=== PATIENT | female | born 1950 | race Caucasian/White ===

== ENCOUNTER 2016-07-23 10:48 | Outpatient (CLI) | payer MEDICARE, OTHER ==
[2016-07-23] VITALS (11 sets, daily range): BP systolic 109–154; BP diastolic 56–64; PULSE 53–62; RESP 18–24; TEMP 97.4–98.2; O2SAT 94–97; Ht 157.5 cm; Wt 75.7 kg
[~2016-07-23] VITALS: Ht 157.5 cm; Wt 75.7 kg
[~2016-07-23 10:48] MED LIST: ACET-1651 PO; AMLO5TAB2 PO; ASPI-558 PO; ATOR80TA76 PO; CALC-587 PO; CLOP75TA19 PO; FISH1CAP29 PO; FURO40TA70 PO; LORA-358 PO; METO25TA41 PO; METO25TA6 PO; NITR0.4T39 SL; NITR1PAT TD; NORMAL SALINE 1,000 ML IV SCH; PANT40TA27 PO; POTA20PA17 PO
--- NOTE | 2016-07-23 10:55 | NUR ---
ARRIVAL AMBULATORY TO ROOM 122. O2 RA. APPEARS TO BE IN NO DISTRESS AT THIS TIME. FAMILY AT BEDSIDE. NETO PIKE RN NOTIFIED OF PATIENT'S ARRIVAL.
[2016-07-23] MEDS ORDERED: MELA1TAB21 PO (11:11)
[2016-07-23] MEDS ORDERED: METO-277 PO (11:11)
[2016-07-23 12:11] LABS: BASOPHILS % (AUTO) 0.5 % (0-2); EOSINOPHILS # (AUTO) 0.3 T/MM3 (0-0.5); EOSINOPHILS % (AUTO) 4.3 % (0-4); HCT - HEMATOCRIT 41.7 % (36-46); IMMATURE GRANULOCYTE # (AUTO) 0.03 T/MM3 (0.00-0.03); IMMATURE GRANULOCYTE % (AUTO) 0.4 % (0.0-0.5); LYMPHOCYTES # (AUTO) 1.8 T/MM3 (1-4.8); MEAN CORPUSCULAR HGB 31.1 UUG (26-34); MEAN CORPUSCULAR HGB CONC(MCHC 33.6 GM/DL (31-37); MEAN CORPUSCULAR VOLUME 92.7 UM3 (80-100); MEAN PLATELET VOLUME 10.4 UM3 (9.4-12.4); MONOCYTES # (AUTO) 0.7 T/MM3 (0-0.8); MONOCYTES % (AUTO) 8.5 % (0-9.0); NEUTROPHILS #(AUTO)-ABSOLUTE 4.8 T/MM3 (1.8-7.7); NEUTROPHILS % (AUTO) 63.3 % (33-66); WBC - WHITE BLOOD COUNT 7.6 T/MM3 (4.5-11.0)
[2016-07-23 12:21] LABS: ANION GAP 11 MEQ/L (5-15); BUN/CREATININE RATIO 22 RATIO (6-26); CALCIUM 9.9 MG/DL (8.4-10.2); CHLORIDE 107 MEQ/L (98-107); CO2 - CARBON DIOXIDE 28 MEQ/L (22-30); GLOMERULAR FILTRATION RATE 55; GLUCOSE 111 MG/DL (65-110); POTASSIUM 3.4 MEQ/L (3.6-5); SODIUM 146 MEQ/L (134-144)
[2016-07-23] MEDS ORDERED: HEPARIN 1,000units in NS 500ml BAG IV ONE (13:52)
[2016-07-23] MEDS ORDERED: IOHEXOL 350mg/ml 200ml BOTTLE ONE ×2 (13:52→14:30)
[2016-07-23] MEDS ORDERED: LIDOCAINE 1% (10mg/ml) 30ml SDV ONE (13:52)
--- NOTE | 2016-07-23 13:55 | NUR ---
TO FILLER SHAKER PATIENT TAKEN TO FILLER SHAKER AT THIS TIME VIA FILLER SHAKER STAFF AND CART. BP CUFF, CONSENT, AND CHART SENT WITH PATIENT. WILL CONTINUE TO MONITOR.
--- NOTE | 2016-07-23 13:57 | NUR ---
SUTTON VERBAL ORDER RECEIVED FROM MELONY FERNANDES APRN FOR A SUTTON CATHETER. PATIENT HAS VOIDED 11 TIMES SINCE ADMISSION DUE TO TAKING PO LASIX THIS AM PRIOR TO ARRIVAL. PATIENT WILL BE A GROIN DUE TO HAVING BYPASS SURGERY. WILL CONTINUE TO MONITOR.
[2016-07-23] MEDS ORDERED: FENTANYL 100mcg/2ml INJECTION ONE (14:09)
[2016-07-23] MEDS ORDERED: SALINE FLUSH 10ml SYRINGE ONE (14:10)
[2016-07-23] MEDS ORDERED: MIDAZOLAM 2mg/2ml INJECTION ONE (14:10)
[2016-07-23] MEDS ORDERED: POTASSIUM CHLORIDE 20 MEQ TABLET ONE (14:18)
[2016-07-23] MEDS ORDERED: METOCLOPRAMIDE 10mg/2ml INJECTION IV PRN (14:45)
[2016-07-23] MEDS ORDERED: HYDROCODONE/APAP 5 mg/325 mg TABLET PO PRN (14:45)
[2016-07-23] MEDS ORDERED: BISACODYL 10 MG SUPPOSITORY RECTALLY PRN (14:45)
[2016-07-23] MEDS ORDERED: MORPHINE SULFATE 4 MG SYRINGE IV PRN ×2 (14:45)
[2016-07-23] MEDS ORDERED: NITROGLYCERIN 0.4 MG SUBLINGUAL TABLET SL PRN (14:45)
[2016-07-23] MEDS ORDERED: ATROPINE 1 MG/ML VIAL IV PRN (14:45)
[2016-07-23] MEDS ORDERED: PROMETHAZINE 25 MG INJECTION IV PRN (14:45)
[2016-07-23] MEDS ORDERED: MILK OF MAGNESIA 30 ML SUSP PO PRN (14:45)
[2016-07-23] MEDS ORDERED: ONDANSETRON 4mg/2ml INJECTION IV PRN (14:45)
[2016-07-23] MEDS ORDERED: LORAZEPAM 1 MG TABLET PO PRN (14:45)
[2016-07-23] MEDS ORDERED: LORAZEPAM 2 MG/ML INJECTION IV PRN (14:45)
[2016-07-23] MEDS ORDERED: ACETAMINOPHEN 325 MG TABLET PO PRN (14:45)
[2016-07-23] MEDS ORDERED: BISACODYL 5 MG E.C. TABLET PO PRN (14:45)
[2016-07-23] MEDS ORDERED: MAG-AL + SIM LIQUID 30 ML UDC PO PRN (14:45)
--- NOTE | 2016-07-23 14:48 | NUR ---
ARRIVAL PATIENT ARRIVED FROM MENTAL HEALTH AIDES TEACHER TO ROOM 122 AT THIS TIME. SLIDE BOARD USED TO TRANSFER PATIENT OVER TO SURGICAL UNIT BED. PATIENT STABLE AND ON ROOM AIR CURRENTLY. RIGHT GROIN CLEAN, DRY, INTACT. TISSUE SOFT. NO S/S OF BLEEDING/HEMATOMA/EDEMA. PATIENT FLAT IN BED. HEAD/LEGS LOCKED ON BED. WILL CONTINUE TO MONITOR.
--- NOTE | 2016-07-23 15:16 | NUR ---
CM THIS WORKER MET WITH PT IN ROOM. PT LAYING IN BED AND AT BEDSIDE. THIS WORKER INTRODUCED SELF AND ROLE OF CASE MANAGEMENT. PT DENIED NEEDS AT THIS TIME. IS PLANNING TO RETURN HOME WITH . DENIED ANY NEEDS WITH MEDICATIONS. THIS WORKER ENCOURAGED PT TO CONTACT THIS WORKER WITH ANY NEEDS.
--- NOTE | 2016-07-23 15:20 | NUR ---
SUTTON FOLLOW UP SUTTON HAS NOT BEEN PLACED DUE TO PATIENT NOT NEEDING TO VOID AT THIS TIME. IF PATIENT CAN AVOID A SUTTON CATHETER, PATIENT REQUESTS TO DO SO. SUTTON PLACEMENT WAS ONLY IF PATIENT WAS NEEDING TO VOID MULTIPLE TIMES WHILE LAYING FLAT SINCE SHE WAS A MYNX. WILL CONTINUE TO MONITOR.
--- NOTE | 2016-07-23 18:41 | NUR ---
DISMISSAL PATIENT DISMISSED TO HOME FOR SELF-CARE TO THE ER ENTRANCE. PATIENT AMBULATORY. GROIN CLEAN, DRY, INTACT. NO S/S OF BLEEDING/HEMATOMA/EDEMA AT DISMISSAL. PATIENT'S WAS THE SALES EXEC HOME. STABLE AT TIME OF DISMISSAL AND ON ROOM AIR. PERSONAL BELONGINGS RETURNED PRIOR TO D/C. IV CATHETER REMOVED BY THIS RN AND IV CATHETER TIP INTACT. D/C INSTRUCTIONS REVIEWED WITH PATIENT AND . BOTH VERBALIZED UNDERSTANDING. TOPICS DISCUSSED INCLUDED: NEW MEDICATIONS, S/S TO REPORT, FOLLOW UP APPOINTMENTS, AND INCISION CARE.
--- NOTE | 2016-07-23 20:48 | CVPROF ---
CARDIAC CATHETERIZATION DATE OF PROCEDURE July 23, 2016 The patient is a pleasant 65-year-old lady with history of coronary artery disease and coronary artery bypass graft with abnormal stress test. She was referred for further evaluation by cardiac catheterization and possible intervention. Informed consent was obtained after explaining the procedure and the potential risks to the patient who agreed to proceed with the procedure. PROCEDURE 1. Left heart catheterization. 2. Coronary angiography. 3. Left ventriculography. 4. Bypass angiography. 5. Selective GILLESPIE angiography. 6. Right femoral angiography to visualize the vessel for Mynx deployment. 7. Successful Mynx deployment for hemostasis. TECHNIQUE She was prepped and draped in the usual sterile techniques. 1% lidocaine was used for local anesthesia. Using modified Seldinger technique, arterial access was obtained into the right femoral artery with placement of a 6-Sammarinese arterial sheath. Conscious sedation was performed using Versed and fentanyl. LEFT VENTRICULOGRAPHY Left ventriculography in single-plane FLORES shallow projection showed basal inferior akinesia with mild apical hypokinesia with ejection fraction of about 50% with mild mitral regurgitation and no gradient across the aortic valve. LVEDP was about 16. CORONARY ANGIOGRAPHY Left main had distal 40%-50% stenosis. Left anterior descending artery had about 80% stenosis in mid segment. Distal LAD was quite small with disease of about 70%-80% at the junction of the second diagonal and LAD. Left circumflex artery had ostial 60%-70% stenosis which gives off to a high marginal. Mid circumflex artery had about 80% stenosis. Distal marginal had about 80%-85% stenosis. Right coronary artery has proximal 80%-85% stenosis. A vein graft to RCA is patent. A vein graft to diagonal was occluded. A vein graft to marginal is occluded. GILLESPIE to LAD appears to be occluded distally. The patient tolerated the procedure well with no complications. Right femoral angiography showed patent common femoral, proximal SFA and profunda and therefore Mynx was used for hemostasis. IMPRESSION 1. Multivessel coronary artery disease as described above. 2. Mild mitral regurgitation. 3. 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 4. Successful Mynx deployment for hemostasis. PLAN Will refer the patient to surgery again for possible coronary artery bypass graft. If the patient is turned down for coronary artery bypass graft, then one might consider LAD and diagonal percutaneous intervention and left circumflex and obtuse marginal percutaneous intervention in future, knowing complete revascularization is not going to be obtained by a percutaneous approach. The findings were discussed with the patient who agrees to proceed with the plan. CAMACHO
== END 2016-07-23 18:41 | disposition home or self-care (01) ==
LOC: CATH 10:48 → SRG 10:48 → CATH 18:41
PROVIDERS: ATTEND Internal Medicine Cardiovascular Disease
DX: I25.810 Atherosclerosis of coronary artery bypass graft(s) without angina pectoris (principal); I34.0 Nonrheumatic mitral (valve) insufficiency; R94.39 Abnormal result of other cardiovascular function study; I10 Essential (primary) hypertension; E78.2 Mixed hyperlipidemia; I50.9 Heart failure, unspecified; K21.9 Gastro-esophageal reflux disease without esophagitis; I25.2 Old myocardial infarction; Z87.891 Personal history of nicotine dependence; Z79.82 Long term (current) use of aspirin; Z79.02 Long term (current) use of antithrombotics/antiplatelets; Z79.899 Other long term (current) drug therapy; Z82.49 Family history of ischemic heart disease and other diseases of the circulatory system
CPT/HCPCS: 36415; 80048; 85025; 93005; 93459; A9270; C1760; C1893; J1644; J2250; J3010; J7030; Q9967; 93458